=== PATIENT | male | born 1965 | race Caucasian/White ===

== ENCOUNTER 2019-03-01 20:32 | Inpatient (IN) | payer OTHER ==
[2019-03-01] MEDS ORDERED: NACL 0.9% 3 ML SYG IV (21:00)
[2019-03-01] MEDS ORDERED: BISACODYL (EC) 5 MG TAB PO (21:00)
[2019-03-01] MEDS ORDERED: DOCUSATE SODIUM 100 MG CAP PO (21:00)
[2019-03-01] MEDS ORDERED: ONDANSETRON 4 MG INJ IV (21:00)
[2019-03-01] MEDS ORDERED: ACETAMINOPHEN 325 MG TAB PO (21:00)
[2019-03-01 21:37] LABS: ADD MAN DIFF? NO; HAAIG REFLEX REFLEX FILED
[2019-03-01 21:44] LABS: BASOPHILS % 0.3 % (0.0-2.0); EOSINOPHILS # 0.4 10^3/ul (0.0-0.5); EOSINOPHILS % 6.6 % (0.0-7.0); HEMATOCRIT 27.8 % (42.0-52.0); HEMOGLOBIN 8.6 g/dl (14.0-18.0); LYMPHOCYTES # 1.9 10^3/ul (0.8-2.9); LYMPHOCYTES % 32.4 % (15.0-51.0); MEAN CORPUSCULAR HGB CONC 30.9 g/dl (32.0-37.0); MEAN CORPUSCULAR VOLUME 87.1 fl (82.0-101.0); MEAN PLATELET VOLUME 8.6 fl (7.4-10.4); MONOCYTE # 0.6 10^3/ul (0.3-0.9); MONOCYTES % 10.3 % (0.0-11.0); NEUTROPHIL # 2.9 10^3/ul (1.6-7.5); NEUTROPHILS % 50.1 % (39.0-77.0); PLATELET COUNT 221 10^3/UL (140-415); RED BLOOD COUNT 3.19 10^6/ul (4.70-6.10); RED CELL DISTRIBUTION WIDTH 13.9 % (11.5-14.5)
[2019-03-01 21:44] LABS: WHITE BLOOD COUNT 5.7 10^3/ul (4.8-10.8)
[2019-03-01 22:08] LABS: ALANINE AMINOTRANSFERASE 22 IU/L (13-69); ALBUMIN 2.1 g/dl (3.3-4.9); ALBUMIN/GLOBULIN RATIO 0.72; ALKALINE PHOSPHATASE 162 IU/L (42-121); ANION GAP 6 (5-13); ASPARTATE AMINO TRANSFERASE 21 IU/L (15-46); BILIRUBIN,INDIRECT 0.1 mg/dl (0-1.1); BILIRUBIN,TOTAL 0.1 mg/dl (0.2-1.3); BLOOD UREA NITROGEN 30 mg/dl (7-20); CALCIUM 7.6 mg/dl (8.4-10.2); CARBON DIOXIDE 20 mmol/L (21-31); CHLORIDE 114 mmol/L (97-110); CREATININE 3.47 mg/dl (0.61-1.24); Estimated GFR 19 mL/min (>60); GLUCOSE 174 mg/dl (70-220); MAGNESIUM 1.8 mg/dl (1.7-2.5); POTASSIUM 4.1 mmol/L (3.5-5.1); SODIUM 140 mmol/L (135-144)
[2019-03-01 22:39] LABS: HEPATITIS B SURFACE ANTIGEN NEGATIVE (NEGATIVE)
[2019-03-01 22:56] LABS: HEPATITIS B CORE ANTIBODY REACTIVE (NEGATIVE)
[2019-03-01 22:57] LABS: HEPATITIS B SURFACE ANTIBODY POSITIVE (NEGATIVE)
[2019-03-01] MEDS: SOD CHLORIDE 0.9% 1,000 ML IV (23:07)
[2019-03-01 23:10] LABS: HEPATITIS C VIRAL ANTIBODY REACTIVE (NEGATIVE)
[2019-03-01] MEDS: HEPARIN 5,000 UNIT/1 ML VIAL SC (23:35)
[2019-03-02] MEDS ORDERED: EYE RELIEF BOTH EYES
[2019-03-02] MEDS: HYDROCODONE/APAP (5/325) TAB PO ×2 (00:46→20:52)
[2019-03-02] MEDS: AMLODIPINE 10 MG TAB PO ×3 (00:47→20:53)
[2019-03-02] MEDS: LEVETIRACETAM 500 MG TAB PO ×3 (00:48→20:53)
[2019-03-02] MEDS ORDERED: DEXTROSE 50% 50 ML SYRINGE IV ×2 (01:00)
[2019-03-02] MEDS ORDERED: GLUCOSE GEL 15 GRAM TUBE BUCCAL (01:00)
[2019-03-02] MEDS ORDERED: GLUCAGON 1 MG INJ IM (01:00)
[2019-03-02] MEDS ORDERED: GLUCOSE GEL 15 GRAM TUBE PO ×2 (01:00)
[2019-03-02 01:11] LABS: ADD UMIC YES; UR ASCORBIC ACID 20 mg/dL (NEGATIVE); UR BILIRUBIN (Dip) NEGATIVE (NEGATIVE); UR BLOOD (Dip) NEGATIVE (NEGATIVE); UR CLARITY SLIGHTLY CLOUDY (CLEAR); UR COLOR YELLOW (YELLOW); UR GLUCOSE (Dip) 3+ mg/dL (NEGATIVE); UR KETONES (Dip) NEGATIVE (NEGATIVE); UR LEUKOCYTE ESTERASE (Dip) NEGATIVE Leu/ul (NEGATIVE); UR NITRITE (Dip) NEGATIVE (NEGATIVE); UR RBC 9 /HPF (0-5); UR SPECIFIC GRAVITY (Dip) 1.013 (1.003-1.030); UR TOTAL PROTEIN (Dip) 3+ mg/dl (NEGATIVE); UR UROBILINOGEN (Dip) NEGATIVE (NEGATIVE); UR WBC 3 /HPF (0-5)
[2019-03-02] MEDS: ACCU-CHEK XX (01:33)
[2019-03-02] MEDS: EUCERIN 113 GM CR TOP ×3 (02:23→20:58)
[2019-03-02 02:33] LABS: SODIUM,URINE RANDOM 57 mmol/L (30-90)
[2019-03-02 06:59] LABS: ADD MAN DIFF? NO
[2019-03-02 07:04] LABS: BASOPHILS % 0.4 % (0.0-2.0); EOSINOPHILS # 0.4 10^3/ul (0.0-0.5); EOSINOPHILS % 7.8 % (0.0-7.0); HEMATOCRIT 26.5 % (42.0-52.0); HEMOGLOBIN 8.3 g/dl (14.0-18.0); LYMPHOCYTES % 38.1 % (15.0-51.0); MEAN CORPUSCULAR HEMOGLOBIN 27.1 pg (29.0-33.0); MEAN CORPUSCULAR HGB CONC 31.3 g/dl (32.0-37.0); MEAN CORPUSCULAR VOLUME 86.6 fl (82.0-101.0); MEAN PLATELET VOLUME 8.7 fl (7.4-10.4); MONOCYTE # 0.5 10^3/ul (0.3-0.9); MONOCYTES % 9.1 % (0.0-11.0); NEUTROPHIL # 2.4 10^3/ul (1.6-7.5); NEUTROPHILS % 44.2 % (39.0-77.0); PLATELET COUNT 214 10^3/UL (140-415); RED BLOOD COUNT 3.06 10^6/ul (4.70-6.10); RED CELL DISTRIBUTION WIDTH 14.1 % (11.5-14.5)
[2019-03-02 07:04] LABS: WHITE BLOOD COUNT 5.4 10^3/ul (4.8-10.8)
[2019-03-02 07:28] LABS: ALANINE AMINOTRANSFERASE 20 IU/L (13-69); ALBUMIN/GLOBULIN RATIO 0.66; ALKALINE PHOSPHATASE 159 IU/L (42-121); ANION GAP 4 (5-13); ASPARTATE AMINO TRANSFERASE 22 IU/L (15-46); BILIRUBIN,INDIRECT 0.2 mg/dl (0-1.1); BILIRUBIN,TOTAL 0.2 mg/dl (0.2-1.3); BLOOD UREA NITROGEN 30 mg/dl (7-20); CALCIUM 7.8 mg/dl (8.4-10.2); CARBON DIOXIDE 20 mmol/L (21-31); CHLORIDE 117 mmol/L (97-110); CHOL/HDL RATIO 5.4 RATIO; CHOLESTEROL 157 mg/dl (100-200); CREATININE 3.53 mg/dl (0.61-1.24); Estimated GFR 18 mL/min (>60); GLUCOSE 103 mg/dl (70-220); HDL CHOLESTEROL 29 mg/dl (28-71); LDL CHOLESTEROL,CALCULATED 81 mg/dl; MAGNESIUM 1.7 mg/dl (1.7-2.5); POTASSIUM 3.8 mmol/L (3.5-5.1); SODIUM 141 mmol/L (135-144); TRIGLYCERIDES 233 mg/dl (0-149)
[2019-03-02] MEDS: INSULIN ASPART [NOVOLOG] 3 ML PEN SC ×4 (08:00→20:54)
[2019-03-02 08:13] LABS: HEMOGLOBIN A1C 6.4 % (0-5.9)
[2019-03-02] MEDS: ZINC SULFATE 220 MG CAP PO (10:01)
[2019-03-02] MEDS: ASCORBIC ACID 500 MG TAB PO ×2 (10:02→20:53)
[2019-03-02] MEDS: DOCUSATE SODIUM 100 MG CAP PO ×2 (10:02→20:52)
[2019-03-02] MEDS: ONDANSETRON 4 MG INJ IV (11:02)
[2019-03-02] MEDS: SENNA TAB PO (20:53)
[2019-03-02] MEDS: BALSAM PERU/CASTOR OIL 60 GM TUBE TOP (23:05)
[2019-03-03] MEDS: ACCU-CHEK XX (02:00)
[2019-03-03] MEDS: PANTOPRAZOLE (EC) 40 MG TAB PO (06:01)
[2019-03-03 07:22] LABS: ADD MAN DIFF? NO
[2019-03-03 07:24] LABS: BASOPHILS % 0.6 % (0.0-2.0); EOSINOPHILS # 0.3 10^3/ul (0.0-0.5); EOSINOPHILS % 5.4 % (0.0-7.0); HEMOGLOBIN 9.1 g/dl (14.0-18.0); LYMPHOCYTES # 1.6 10^3/ul (0.8-2.9); LYMPHOCYTES % 30.4 % (15.0-51.0); MEAN CORPUSCULAR HEMOGLOBIN 27.2 pg (29.0-33.0); MEAN CORPUSCULAR HGB CONC 31.4 g/dl (32.0-37.0); MEAN CORPUSCULAR VOLUME 86.6 fl (82.0-101.0); MEAN PLATELET VOLUME 8.6 fl (7.4-10.4); MONOCYTE # 0.5 10^3/ul (0.3-0.9); MONOCYTES % 9.9 % (0.0-11.0); NEUTROPHIL # 2.9 10^3/ul (1.6-7.5); NEUTROPHILS % 53.3 % (39.0-77.0); PLATELET COUNT 244 10^3/UL (140-415); RED BLOOD COUNT 3.35 10^6/ul (4.70-6.10); RED CELL DISTRIBUTION WIDTH 13.8 % (11.5-14.5)
[2019-03-03 07:24] LABS: WHITE BLOOD COUNT 5.4 10^3/ul (4.8-10.8)
[2019-03-03 07:51] LABS: ALANINE AMINOTRANSFERASE 22 IU/L (13-69); ALBUMIN 2.3 g/dl (3.3-4.9); ALBUMIN/GLOBULIN RATIO 0.71; ALKALINE PHOSPHATASE 190 IU/L (42-121); ANION GAP 4 (5-13); ASPARTATE AMINO TRANSFERASE 25 IU/L (15-46); BILIRUBIN,INDIRECT 0.2 mg/dl (0-1.1); BILIRUBIN,TOTAL 0.2 mg/dl (0.2-1.3); BLOOD UREA NITROGEN 28 mg/dl (7-20); CARBON DIOXIDE 19 mmol/L (21-31); CHLORIDE 118 mmol/L (97-110); CREATININE 3.49 mg/dl (0.61-1.24); Estimated GFR 18 mL/min (>60); GLUCOSE 108 mg/dl (70-220); SODIUM 141 mmol/L (135-144); TOTAL PROTEIN 5.5 g/dl (6.1-8.1)
[2019-03-03] MEDS: ONDANSETRON 4 MG INJ IV (08:22)
[2019-03-03] MEDS: ACETAMINOPHEN 325 MG TAB PO (08:23)
[2019-03-03] MEDS: AMLODIPINE 10 MG TAB PO (08:27)
[2019-03-03] MEDS: DOCUSATE SODIUM 100 MG CAP PO ×2 (08:27→20:33)
[2019-03-03] MEDS: LEVETIRACETAM 500 MG TAB PO ×2 (08:27→20:33)
[2019-03-03] MEDS: ZINC SULFATE 220 MG CAP PO (08:28)
[2019-03-03] MEDS: ASCORBIC ACID 500 MG TAB PO ×2 (08:28→20:33)
[2019-03-03] MEDS: INSULIN ASPART [NOVOLOG] 3 ML PEN SC ×4 (08:35→20:36)
[2019-03-03] MEDS: EUCERIN 113 GM CR TOP ×2 (08:36→20:35)
[2019-03-03] MEDS: BALSAM PERU/CASTOR OIL 60 GM TUBE TOP ×2 (08:36→20:35)
[2019-03-03] MEDS: NIFEdipine (XL) 90 MG TAB PO (16:30)
[2019-03-03] MEDS: SENNA TAB PO (20:32)
[2019-03-03] MEDS: HYDROCODONE/APAP (5/325) TAB PO (20:32)
[2019-03-03] MEDS: QUETIAPINE 25 MG TAB PO (22:19)
[2019-03-04] MEDS: ACCU-CHEK XX (01:26)
[2019-03-04 02:26] LABS: ADD UMIC YES; UR AMORPHOUS CRYSTAL FEW /HPF (NONE SEEN); UR ASCORBIC ACID 40 mg/dL (NEGATIVE); UR BACTERIA FEW /HPF (NONE SEEN); UR BILIRUBIN (Dip) NEGATIVE (NEGATIVE); UR BLOOD (Dip) NEGATIVE (NEGATIVE); UR CLARITY CLOUDY (CLEAR); UR COLOR YELLOW (YELLOW); UR GLUCOSE (Dip) 2+ mg/dL (NEGATIVE); UR KETONES (Dip) NEGATIVE (NEGATIVE); UR LEUKOCYTE ESTERASE (Dip) NEGATIVE Leu/ul (NEGATIVE); UR NITRITE (Dip) NEGATIVE (NEGATIVE); UR RBC 4 /HPF (0-5); UR SPECIFIC GRAVITY (Dip) 1.019 (1.003-1.030); UR SQUAMOUS EPITHELIAL CELL FEW /HPF (FEW); UR TOTAL PROTEIN (Dip) 3+ mg/dl (NEGATIVE); UR UROBILINOGEN (Dip) NEGATIVE (NEGATIVE); UR WBC 5 /HPF (0-5)
[2019-03-04 02:29] LABS: CREATININE,URINE RANDOM 126.65 mg/dl (20-370)
[2019-03-04 02:29] LABS: SODIUM,URINE RANDOM 25 mmol/L (30-90)
[2019-03-04 04:04] LABS: PROTEIN URINE > 600.0 mg/dl (0.0-11.9)
[2019-03-04] MEDS: PANTOPRAZOLE (EC) 40 MG TAB PO (05:37)
[2019-03-04] MEDS: ONDANSETRON 4 MG INJ IV (08:17)
[2019-03-04] MEDS: ASCORBIC ACID 500 MG TAB PO (08:21)
[2019-03-04] MEDS: LEVETIRACETAM 500 MG TAB PO (08:21)
[2019-03-04] MEDS: ZINC SULFATE 220 MG CAP PO (08:21)
[2019-03-04] MEDS: DOCUSATE SODIUM 100 MG CAP PO (08:21)
[2019-03-04] MEDS: INSULIN ASPART [NOVOLOG] 3 ML PEN SC ×2 (08:22→12:09)
[2019-03-04] MEDS: NIFEdipine (XL) 90 MG TAB PO (08:24)
[2019-03-04] MEDS: EUCERIN 113 GM CR TOP (08:25)
[2019-03-04] MEDS: BALSAM PERU/CASTOR OIL 60 GM TUBE TOP (08:25)
[2019-03-04] MEDS: hydrALAzine 20 MG INJ IV (10:26)
[2019-03-04] MEDS: HYDROCODONE/APAP (10/325) TAB PO (10:29)
[2019-03-07 16:12] LABS: CREATININE, RANDOM URINE 124 mg/dL (20-320); MICROALBUMIN >600.0 mg/dL
== END 2019-03-04 15:09 | disposition left against medical advice (07) | DRG 683 ==
LOC: PP2 22:22 → E/R 20:32 → PP2 20:35
DX: N17.9 Acute kidney failure, unspecified (principal); E87.2 Acidosis; K52.9 Noninfective gastroenteritis and colitis, unspecified; N18.4 Chronic kidney disease, stage 4 (severe); K29.70 Gastritis, unspecified, without bleeding; E11.22 Type 2 diabetes mellitus with diabetic chronic kidney disease; I12.9 Hypertensive chronic kidney disease with stage 1 through stage 4 chronic kidney disease, or unspecified chronic kidney disease; Z89.519 Acquired absence of unspecified leg below knee; E86.0 Dehydration; R10.11 Right upper quadrant pain; E11.319 Type 2 diabetes mellitus with unspecified diabetic retinopathy without macular edema; Z86.718 Personal history of other venous thrombosis and embolism; R53.81 Other malaise; D64.9 Anemia, unspecified; B19.20 Unspecified viral hepatitis C without hepatic coma
CPT/HCPCS: 73630-LT; 73660; 76705; 76775; 80053; 80061; 81001; 81003; 82043; 82962; 83036; 83735; 84155; 84300; 84443; 85025; 86704; 86706; 86708; 86709; 86803; 87081; 87340; 87522; 93970; 99285-25

== ENCOUNTER 2019-04-19 05:55 | Inpatient (IN) | payer OTHER ==
[2019-04-19] MEDS: hydrALAzine 20 MG INJ IV (07:54)
[2019-04-19] MEDS: morphine 4 MG/ML VIAL IV (08:21)
[2019-04-19] MEDS ORDERED: NACL 0.9% 3 ML SYG IV (10:00)
[2019-04-19] MEDS ORDERED: morphine 2 MG INJ IV (10:00)
[2019-04-19] MEDS ORDERED: PENDING SANTYL ORDER FOR WOUND CARE XX (10:30)
[2019-04-19] MEDS: HYDROmorphONE 1 MG/ML SYG IV ×3 (11:36→19:59)
[2019-04-19] MEDS: DOCUSATE SODIUM 100 MG CAP PO ×2 (11:39→20:13)
[2019-04-19] MEDS: LEVETIRACETAM 500 MG TAB PO ×2 (11:39→20:14)
[2019-04-19] MEDS: MULTIVITAMINS THERAPEUTIC TAB PO (11:39)
[2019-04-19] MEDS: ASCORBIC ACID 500 MG TAB PO ×2 (11:40→20:14)
[2019-04-19] MEDS: ZINC SULFATE 220 MG CAP PO (11:41)
[2019-04-19 12:22] LABS: ADD MAN DIFF? NO
[2019-04-19 12:27] LABS: WHITE BLOOD COUNT 10.4 10^3/ul (4.8-10.8)
[2019-04-19 12:27] LABS: BASOPHILS % 0.4 % (0.0-2.0); EOSINOPHILS # 0.7 10^3/ul (0.0-0.5); EOSINOPHILS % 6.2 % (0.0-7.0); HEMATOCRIT 34.2 % (42.0-52.0); HEMOGLOBIN 11.1 g/dl (14.0-18.0); LYMPHOCYTES # 2.3 10^3/ul (0.8-2.9); LYMPHOCYTES % 21.6 % (15.0-51.0); MEAN CORPUSCULAR HEMOGLOBIN 26.6 pg (29.0-33.0); MEAN CORPUSCULAR HGB CONC 32.5 g/dl (32.0-37.0); MEAN CORPUSCULAR VOLUME 81.8 fl (82.0-101.0); MEAN PLATELET VOLUME 9.5 fl (7.4-10.4); MONOCYTE # 0.7 10^3/ul (0.3-0.9); MONOCYTES % 6.9 % (0.0-11.0); NEUTROPHIL # 6.7 10^3/ul (1.6-7.5); NEUTROPHILS % 63.9 % (39.0-77.0); PLATELET COUNT 292 10^3/UL (140-415); RED BLOOD COUNT 4.18 10^6/ul (4.70-6.10); RED CELL DISTRIBUTION WIDTH 14.2 % (11.5-14.5)
[2019-04-19] MEDS: FUROSEMIDE 40 MG INJ IV (12:38)
[2019-04-19] MEDS: INSULIN GLARGINE [LANTus] (100 UNITS/ML) SYG SC (13:39)
[2019-04-19 13:48] LABS: ADD UMIC YES; UR ASCORBIC ACID 40 mg/dL (NEGATIVE); UR BACTERIA MODERATE /HPF (NONE SEEN); UR BILIRUBIN (Dip) NEGATIVE (NEGATIVE); UR BLOOD (Dip) NEGATIVE (NEGATIVE); UR CLARITY SLIGHTLY CLOUDY (CLEAR); UR COLOR YELLOW (YELLOW); UR GLUCOSE (Dip) 3+ mg/dL (NEGATIVE); UR KETONES (Dip) NEGATIVE (NEGATIVE); UR LEUKOCYTE ESTERASE (Dip) NEGATIVE Leu/ul (NEGATIVE); UR NITRITE (Dip) NEGATIVE (NEGATIVE); UR RBC 10 /HPF (0-5); UR SPECIFIC GRAVITY (Dip) 1.014 (1.003-1.030); UR TOTAL PROTEIN (Dip) 3+ mg/dl (NEGATIVE); UR UROBILINOGEN (Dip) NEGATIVE (NEGATIVE); UR WBC 2 /HPF (0-5)
[2019-04-19 14:29] LABS: SODIUM,URINE RANDOM 59 mmol/L (30-90)
[2019-04-19 14:49] LABS: ANION GAP 6 (5-13); BLOOD UREA NITROGEN 34 mg/dl (7-20); CARBON DIOXIDE 15 mmol/L (21-31); CHLORIDE 118 mmol/L (97-110); CREATININE 4.26 mg/dl (0.61-1.24); Estimated GFR 15 mL/min (>60); GLUCOSE 170 mg/dl (70-220); POTASSIUM 4.1 mmol/L (3.5-5.1); SODIUM 139 mmol/L (135-144)
[2019-04-19 14:58] LABS: B-TYPE NATRIURETIC PEPTIDE 11400 PG/ML (0-125)
[2019-04-19 15:42] LABS: PROTEIN URINE > 600.0 mg/dl (0.0-11.9)
[2019-04-19] MEDS: INSULIN ASPART [NOVOLOG] 3 ML PEN SC ×3 (17:30→20:13)
[2019-04-19] MEDS: SENNA TAB PO (20:23)
[2019-04-19] MEDS ORDERED: AMLODIPINE 10 MG TAB PO (21:00)
[2019-04-20] MEDS: QUETIAPINE 25 MG TAB PO ×2 (01:18→22:35)
[2019-04-20] MEDS: ACCU-CHEK XX (02:00)
[2019-04-20] MEDS: HYDROmorphONE 1 MG/ML SYG IV ×7 (04:03→23:34)
[2019-04-20 06:39] LABS: ADD MAN DIFF? NO
[2019-04-20 06:43] LABS: BASOPHILS % 0.5 % (0.0-2.0); EOSINOPHILS # 0.6 10^3/ul (0.0-0.5); EOSINOPHILS % 7.7 % (0.0-7.0); HEMATOCRIT 25.1 % (42.0-52.0); HEMOGLOBIN 8.3 g/dl (14.0-18.0); LYMPHOCYTES # 2.1 10^3/ul (0.8-2.9); LYMPHOCYTES % 28.1 % (15.0-51.0); MEAN CORPUSCULAR HEMOGLOBIN 27.1 pg (29.0-33.0); MEAN CORPUSCULAR HGB CONC 33.1 g/dl (32.0-37.0); MEAN PLATELET VOLUME 9.3 fl (7.4-10.4); MONOCYTE # 0.6 10^3/ul (0.3-0.9); MONOCYTES % 8.7 % (0.0-11.0); NEUTROPHILS % 54.6 % (39.0-77.0); PLATELET COUNT 233 10^3/UL (140-415); RED BLOOD COUNT 3.06 10^6/ul (4.70-6.10); RED CELL DISTRIBUTION WIDTH 14.3 % (11.5-14.5)
[2019-04-20 06:43] LABS: WHITE BLOOD COUNT 7.4 10^3/ul (4.8-10.8)
[2019-04-20 06:55] LABS: HEMOGLOBIN A1C 6.3 % (0-5.9)
[2019-04-20 07:04] LABS: ALANINE AMINOTRANSFERASE 24 IU/L (13-69); ALBUMIN 1.8 g/dl (3.3-4.9); ALKALINE PHOSPHATASE 149 IU/L (42-121); ANION GAP 4 (5-13); ASPARTATE AMINO TRANSFERASE 27 IU/L (15-46); BILIRUBIN,INDIRECT 0.1 mg/dl (0-1.1); BILIRUBIN,TOTAL 0.1 mg/dl (0.2-1.3); BLOOD UREA NITROGEN 35 mg/dl (7-20); CALCIUM 7.4 mg/dl (8.4-10.2); CARBON DIOXIDE 17 mmol/L (21-31); CHLORIDE 121 mmol/L (97-110); CHOL/HDL RATIO 4.3 RATIO; CHOLESTEROL 135 mg/dl (100-200); CREATININE 4.35 mg/dl (0.61-1.24); Estimated GFR 14 mL/min (>60); GLUCOSE 71 mg/dl (70-220); HDL CHOLESTEROL 31 mg/dl (28-71); LDL CHOLESTEROL,CALCULATED 83 mg/dl; MAGNESIUM 1.8 mg/dl (1.7-2.5); PHOSPHORUS 5.9 mg/dl (2.5-4.9); POTASSIUM 3.8 mmol/L (3.5-5.1); SODIUM 142 mmol/L (135-144); TOTAL PROTEIN 4.8 g/dl (6.1-8.1); TRIGLYCERIDES 106 mg/dl (0-149)
[2019-04-20] MEDS: INSULIN ASPART [NOVOLOG] 3 ML PEN SC ×5 (07:55→21:00)
[2019-04-20] MEDS ORDERED: METOLAZONE 5 MG TAB PO (08:30)
[2019-04-20] MEDS: LEVETIRACETAM 500 MG TAB PO ×2 (09:29→21:20)
[2019-04-20] MEDS: ZINC SULFATE 220 MG CAP PO (09:29)
[2019-04-20] MEDS: MULTIVITAMINS THERAPEUTIC TAB PO (09:31)
[2019-04-20] MEDS: ASCORBIC ACID 500 MG TAB PO ×2 (09:31→21:22)
[2019-04-20] MEDS: PSYLLIUM 28% PACKET PO ×2 (09:38→21:22)
[2019-04-20] MEDS: FUROSEMIDE 40 MG INJ IV ×2 (09:38→17:39)
[2019-04-20] MEDS ORDERED: DEXTROSE 50% 50 ML SYRINGE IV ×2 (10:00)
[2019-04-20] MEDS ORDERED: GLUCAGON 1 MG INJ IM (10:00)
[2019-04-20] MEDS ORDERED: GLUCOSE GEL 15 GRAM TUBE BUCCAL (10:00)
[2019-04-20] MEDS ORDERED: GLUCOSE GEL 15 GRAM TUBE PO ×2 (10:00)
[2019-04-20] MEDS: METOLAZONE 2.5 MG TAB PO (10:19)
[2019-04-20] MEDS: SEVELAMER CARBONATE 800 MG TABLET PO ×2 (12:04→17:27)
[2019-04-20 12:39] LABS: FLUID LD 139 U/L; FLUID TYPE PARACENTESIS FLUID
[2019-04-20 12:40] LABS: FLUID TOTAL PROTEIN < 2.0 g/dl
[2019-04-20 12:52] LABS: FLD WBC 114 /cmm
[2019-04-20 13:00] LABS: FLD CLARITY CLEAR; FLD COLOR COLORLESS
[2019-04-20 13:00] LABS: FLD TYPE PARACENTHESIS
[2019-04-20 13:01] LABS: FLD RBC < 2000 /uL
[2019-04-20] MEDS: LIDOCAINE 1% (MPF) 5 ML VIAL (13:08)
[2019-04-20 13:16] LABS: FLD MN% 85.1 %; FLD PMN% 14.9 %
[2019-04-20] MEDS: DOXAZOSIN 2 MG TAB PO (14:10)
[2019-04-20] MEDS: NIFEdipine (XL) 30 MG TAB PO ×2 (15:54→21:20)
[2019-04-20 16:32] LABS: CREATININE, RANDOM URINE 69 mg/dL (20-320); MICROALBUMIN 410.4 mg/dL; MICROALBUMIN/CREATININE RATIO 5948 (<30)
[2019-04-20] MEDS: hydrALAzine 20 MG INJ IV (17:44)
[2019-04-20] MEDS: DOCUSATE SODIUM 100 MG CAP PO (21:21)
[2019-04-20] MEDS: SENNA TAB PO (21:22)
[2019-04-20] MEDS: INSULIN GLARGINE [LANTus] (100 UNITS/ML) SYG SC (21:29)
[2019-04-21] MEDS: hydrALAzine 20 MG INJ IV ×2 (01:07→15:26)
[2019-04-21] MEDS: ACCU-CHEK XX (02:15)
[2019-04-21] MEDS: HYDROmorphONE 1 MG/ML SYG IV ×6 (03:26→23:31)
[2019-04-21] MEDS: SPIRONOLACTONE 25 MG TAB PO (06:08)
[2019-04-21] MEDS: FUROSEMIDE 40 MG INJ IV ×2 (06:09→17:20)
[2019-04-21] MEDS: INSULIN ASPART [NOVOLOG] 3 ML PEN SC ×4 (07:41→21:00)
[2019-04-21] MEDS: LEVETIRACETAM 500 MG TAB PO ×2 (08:20→21:51)
[2019-04-21] MEDS: ZINC SULFATE 220 MG CAP PO (08:20)
[2019-04-21] MEDS: ASCORBIC ACID 500 MG TAB PO ×2 (08:20→21:51)
[2019-04-21 08:21] LABS: ADD MAN DIFF? NO
[2019-04-21] MEDS: SEVELAMER CARBONATE 800 MG TABLET PO ×3 (08:21→17:20)
[2019-04-21] MEDS: SENNA TAB PO ×2 (08:21→21:49)
[2019-04-21] MEDS: MULTIVITAMINS THERAPEUTIC TAB PO (08:21)
[2019-04-21] MEDS: DOCUSATE SODIUM 100 MG CAP PO ×2 (08:21→21:51)
[2019-04-21] MEDS: NIFEdipine (XL) 30 MG TAB PO ×2 (08:22→21:49)
[2019-04-21 08:29] LABS: BASOPHILS % 0.2 % (0.0-2.0); EOSINOPHILS # 0.6 10^3/ul (0.0-0.5); EOSINOPHILS % 6.7 % (0.0-7.0); HEMATOCRIT 27.4 % (42.0-52.0); HEMOGLOBIN 8.9 g/dl (14.0-18.0); LYMPHOCYTES # 1.8 10^3/ul (0.8-2.9); LYMPHOCYTES % 22.2 % (15.0-51.0); MEAN CORPUSCULAR HEMOGLOBIN 26.8 pg (29.0-33.0); MEAN CORPUSCULAR HGB CONC 32.5 g/dl (32.0-37.0); MEAN CORPUSCULAR VOLUME 82.5 fl (82.0-101.0); MEAN PLATELET VOLUME 9.5 fl (7.4-10.4); MONOCYTE # 0.6 10^3/ul (0.3-0.9); MONOCYTES % 7.2 % (0.0-11.0); NEUTROPHIL # 5.2 10^3/ul (1.6-7.5); NEUTROPHILS % 63.3 % (39.0-77.0); PLATELET COUNT 283 10^3/UL (140-415); RED BLOOD COUNT 3.32 10^6/ul (4.70-6.10); RED CELL DISTRIBUTION WIDTH 13.8 % (11.5-14.5)
[2019-04-21 08:29] LABS: WHITE BLOOD COUNT 8.2 10^3/ul (4.8-10.8)
[2019-04-21 08:52] LABS: ANION GAP 7 (5-13); BLOOD UREA NITROGEN 40 mg/dl (7-20); CALCIUM 7.9 mg/dl (8.4-10.2); CARBON DIOXIDE 18 mmol/L (21-31); CHLORIDE 117 mmol/L (97-110); CREATININE 4.28 mg/dl (0.61-1.24); Estimated GFR 15 mL/min (>60); GLUCOSE 73 mg/dl (70-220); MAGNESIUM 1.8 mg/dl (1.7-2.5); PHOSPHORUS 5.9 mg/dl (2.5-4.9); POTASSIUM 3.9 mmol/L (3.5-5.1); SODIUM 142 mmol/L (135-144)
[2019-04-21] MEDS: PSYLLIUM 28% PACKET PO ×2 (11:32→21:52)
[2019-04-21 13:49] LABS: HEPATITIS B SURFACE ANTIGEN NEGATIVE (NEGATIVE)
[2019-04-21 14:06] LABS: HEPATITIS B SURFACE ANTIBODY POSITIVE (NEGATIVE)
[2019-04-21 14:07] LABS: HEPATITIS B CORE ANTIBODY REACTIVE (NEGATIVE)
[2019-04-21 14:08] LABS: HEPATITIS C VIRAL ANTIBODY REACTIVE (NEGATIVE)
[2019-04-21 15:13] LABS: CREATINE KINASE 375 IU/L (23-200)
[2019-04-21 15:24] LABS: CK INDEX 1.9; TROPONIN-I 0.042 ng/ml (0.000-0.120)
[2019-04-21 15:33] LABS: CK-MB 7.14 ng/ml (0.0-2.4)
[2019-04-21] MEDS: DOXAZOSIN 2 MG TAB PO (21:49)
[2019-04-21] MEDS: RIFAXIMIN 550 MG TAB PO (21:49)
[2019-04-21] MEDS: INSULIN GLARGINE [LANTus] (100 UNITS/ML) SYG SC (22:01)
[2019-04-21] MEDS: QUETIAPINE 25 MG TAB PO (23:30)
[2019-04-21] MEDS: AL HYDROX/MG HYDROX/SIMETH 30 ML CUP PO (23:30)
[2019-04-22] MEDS: ONDANSETRON 4 MG INJ IV ×4 (00:46→21:19)
[2019-04-22] MEDS: hydrALAzine 20 MG INJ IV (00:46)
[2019-04-22] MEDS: QUETIAPINE 25 MG TAB PO (02:07)
[2019-04-22] MEDS: ACCU-CHEK XX (02:14)
[2019-04-22] MEDS: HYDROmorphONE 1 MG/ML SYG IV ×3 (03:28→12:34)
[2019-04-22] MEDS: SPIRONOLACTONE 25 MG TAB PO (06:05)
[2019-04-22] MEDS: FUROSEMIDE 40 MG INJ IV ×2 (06:06→17:37)
[2019-04-22 06:46] LABS: ADD MAN DIFF? NO
[2019-04-22 06:48] LABS: BASOPHILS % 0.4 % (0.0-2.0); EOSINOPHILS # 0.4 10^3/ul (0.0-0.5); EOSINOPHILS % 4.8 % (0.0-7.0); HEMATOCRIT 25.5 % (42.0-52.0); HEMOGLOBIN 8.2 g/dl (14.0-18.0); LYMPHOCYTES % 26.8 % (15.0-51.0); MEAN CORPUSCULAR HEMOGLOBIN 26.5 pg (29.0-33.0); MEAN CORPUSCULAR HGB CONC 32.2 g/dl (32.0-37.0); MEAN CORPUSCULAR VOLUME 82.3 fl (82.0-101.0); MEAN PLATELET VOLUME 8.6 fl (7.4-10.4); MONOCYTE # 0.7 10^3/ul (0.3-0.9); MONOCYTES % 9.7 % (0.0-11.0); NEUTROPHIL # 4.3 10^3/ul (1.6-7.5); NEUTROPHILS % 57.9 % (39.0-77.0); PLATELET COUNT 235 10^3/UL (140-415)
[2019-04-22 06:48] LABS: WHITE BLOOD COUNT 7.3 10^3/ul (4.8-10.8)
[2019-04-22 07:07] LABS: INR 1.03; PROTIME 13.6 Sec (11.9-14.9); PT RATIO 1.1
[2019-04-22 07:12] LABS: ANION GAP 6 (5-13); BLOOD UREA NITROGEN 44 mg/dl (7-20); CALCIUM 7.6 mg/dl (8.4-10.2); CARBON DIOXIDE 19 mmol/L (21-31); CHLORIDE 117 mmol/L (97-110); Estimated GFR 14 mL/min (>60); GLUCOSE 102 mg/dl (70-220); MAGNESIUM 1.7 mg/dl (1.7-2.5); PHOSPHORUS 6.3 mg/dl (2.5-4.9); POTASSIUM 3.9 mmol/L (3.5-5.1); SODIUM 142 mmol/L (135-144)
[2019-04-22] MEDS: INSULIN ASPART [NOVOLOG] 3 ML PEN SC ×4 (07:55→21:00)
[2019-04-22] MEDS: PSYLLIUM 28% PACKET PO ×2 (09:00→21:19)
[2019-04-22] MEDS: ZINC SULFATE 220 MG CAP PO (09:37)
[2019-04-22] MEDS: RIFAXIMIN 550 MG TAB PO ×2 (09:37→21:20)
[2019-04-22] MEDS: MULTIVITAMINS THERAPEUTIC TAB PO (09:38)
[2019-04-22] MEDS: ASCORBIC ACID 500 MG TAB PO ×2 (09:38→21:20)
[2019-04-22] MEDS: NIFEdipine (XL) 30 MG TAB PO ×2 (09:39→21:21)
[2019-04-22] MEDS: SENNA TAB PO ×2 (09:39→21:21)
[2019-04-22] MEDS: LEVETIRACETAM 500 MG TAB PO ×2 (09:39→21:20)
[2019-04-22] MEDS: DOCUSATE SODIUM 100 MG CAP PO ×2 (09:39→21:21)
[2019-04-22] MEDS: SEVELAMER CARBONATE 800 MG TABLET PO ×2 (11:42→17:38)
[2019-04-22] MEDS: OXYCODONE/ACETAMINOPHEN (5/325) TAB PO ×3 (15:44→23:53)
[2019-04-22] MEDS: DOXAZOSIN 2 MG TAB PO (21:21)
[2019-04-22] MEDS: INSULIN GLARGINE [LANTus] (100 UNITS/ML) SYG SC (21:33)
[2019-04-23] MEDS: ACCU-CHEK XX (02:22)
[2019-04-23] MEDS: ONDANSETRON 4 MG INJ IV ×4 (03:39→21:59)
[2019-04-23] MEDS: OXYCODONE/ACETAMINOPHEN (5/325) TAB PO ×5 (03:40→20:16)
[2019-04-23] MEDS: SPIRONOLACTONE 25 MG TAB PO (05:43)
[2019-04-23] MEDS: FUROSEMIDE 40 MG INJ IV ×2 (05:44→17:03)
[2019-04-23 07:28] LABS: ANION GAP 5 (5-13); BLOOD UREA NITROGEN 45 mg/dl (7-20); CALCIUM 7.7 mg/dl (8.4-10.2); CARBON DIOXIDE 21 mmol/L (21-31); CHLORIDE 116 mmol/L (97-110); CREATININE 4.29 mg/dl (0.61-1.24); Estimated GFR 15 mL/min (>60); POTASSIUM 3.8 mmol/L (3.5-5.1); SODIUM 142 mmol/L (135-144)
[2019-04-23 07:44] LABS: GLUCOSE 41 mg/dl (70-220)
[2019-04-23] MEDS: INSULIN ASPART [NOVOLOG] 3 ML PEN SC ×4 (07:51→21:00)
[2019-04-23] MEDS: POLYETHYLENE GLYCOL 17 GM PACKET PO (08:13)
[2019-04-23] MEDS: SEVELAMER CARBONATE 800 MG TABLET PO ×3 (08:16→17:02)
[2019-04-23] MEDS: LEVETIRACETAM 500 MG TAB PO ×2 (08:17→22:02)
[2019-04-23] MEDS: ASCORBIC ACID 500 MG TAB PO ×2 (08:17→22:03)
[2019-04-23] MEDS: DOCUSATE SODIUM 100 MG CAP PO (08:17)
[2019-04-23] MEDS: RIFAXIMIN 550 MG TAB PO ×2 (08:17→22:02)
[2019-04-23] MEDS: ZINC SULFATE 220 MG CAP PO (08:17)
[2019-04-23] MEDS: SENNA TAB PO ×2 (08:17→22:02)
[2019-04-23] MEDS: MULTIVITAMINS THERAPEUTIC TAB PO (08:17)
[2019-04-23] MEDS: PSYLLIUM 28% PACKET PO ×2 (08:18→22:02)
[2019-04-23] MEDS: NIFEdipine (XL) 30 MG TAB PO ×2 (08:18→22:01)
[2019-04-23] MEDS: hydrALAzine 20 MG INJ IV (15:54)
[2019-04-23] MEDS: INSULIN GLARGINE [LANTus] (100 UNITS/ML) SYG SC ×2 (20:55→21:00)
[2019-04-23] MEDS: QUETIAPINE 25 MG TAB PO (22:03)
[2019-04-23] MEDS: DOXAZOSIN 2 MG TAB PO (22:04)
[2019-04-24] MEDS: OXYCODONE/ACETAMINOPHEN (5/325) TAB PO ×5 (01:57→20:53)
[2019-04-24] MEDS: ACCU-CHEK XX (02:35)
[2019-04-24] MEDS: ONDANSETRON 4 MG INJ IV ×4 (03:30→21:25)
[2019-04-24] MEDS: SPIRONOLACTONE 25 MG TAB PO (06:14)
[2019-04-24] MEDS: FUROSEMIDE 40 MG INJ IV ×2 (06:14→16:51)
[2019-04-24] MEDS: INSULIN ASPART [NOVOLOG] 3 ML PEN SC ×4 (07:55→21:00)
[2019-04-24 08:55] LABS: ANION GAP 6 (5-13); BLOOD UREA NITROGEN 54 mg/dl (7-20); CALCIUM 7.4 mg/dl (8.4-10.2); CARBON DIOXIDE 20 mmol/L (21-31); CHLORIDE 115 mmol/L (97-110); CREATININE 4.63 mg/dl (0.61-1.24); Estimated GFR 13 mL/min (>60); GLUCOSE 79 mg/dl (70-220); POTASSIUM 4.3 mmol/L (3.5-5.1); SODIUM 141 mmol/L (135-144)
[2019-04-24] MEDS: LEVETIRACETAM 500 MG TAB PO ×2 (08:55→21:23)
[2019-04-24] MEDS: ASCORBIC ACID 500 MG TAB PO ×2 (08:55→22:49)
[2019-04-24] MEDS: SENNA TAB PO ×2 (08:55→21:23)
[2019-04-24 08:58] LABS: MAGNESIUM 1.8 mg/dl (1.7-2.5)
[2019-04-24] MEDS: RIFAXIMIN 550 MG TAB PO ×2 (08:58→21:24)
[2019-04-24] MEDS: FAMOTIDINE 20 MG TAB PO (08:58)
[2019-04-24] MEDS: ZINC SULFATE 220 MG CAP PO (08:59)
[2019-04-24] MEDS: SEVELAMER CARBONATE 800 MG TABLET PO ×3 (08:59→16:37)
[2019-04-24] MEDS: MULTIVITAMINS THERAPEUTIC TAB PO (08:59)
[2019-04-24] MEDS: PSYLLIUM 28% PACKET PO ×2 (08:59→21:00)
[2019-04-24] MEDS: NIFEdipine (XL) 30 MG TAB PO ×2 (09:00→21:22)
[2019-04-24] MEDS: POLYETHYLENE GLYCOL 17 GM PACKET PO (09:01)
[2019-04-24] MEDS: ENOXAPARIN 30 MG/0.3 ML SYG SC (09:08)
[2019-04-24] MEDS: DOXAZOSIN 2 MG TAB PO (21:26)
[2019-04-24] MEDS: QUETIAPINE 25 MG TAB PO (21:42)
[2019-04-24] MEDS: INSULIN GLARGINE [LANTus] (100 UNITS/ML) SYG SC (22:23)
[2019-04-25] MEDS: ACCU-CHEK XX (02:00)
[2019-04-25] MEDS: ONDANSETRON 4 MG INJ IV ×3 (03:30→15:25)
[2019-04-25] MEDS: OXYCODONE/ACETAMINOPHEN (5/325) TAB PO ×4 (04:04→12:13)
[2019-04-25] MEDS: SPIRONOLACTONE 25 MG TAB PO (06:00)
[2019-04-25] MEDS: FUROSEMIDE 40 MG INJ IV (06:00)
[2019-04-25 07:17] LABS: ANION GAP 5 (5-13); BLOOD UREA NITROGEN 56 mg/dl (7-20); CALCIUM 7.5 mg/dl (8.4-10.2); CARBON DIOXIDE 21 mmol/L (21-31); CHLORIDE 115 mmol/L (97-110); CREATININE 4.84 mg/dl (0.61-1.24); Estimated GFR 13 mL/min (>60); GLUCOSE 61 mg/dl (70-220); POTASSIUM 4.6 mmol/L (3.5-5.1); SODIUM 141 mmol/L (135-144)
[2019-04-25 07:28] LABS: FREE T4 (FREE THYROXINE) 1.34 ng/dl (0.64-1.79)
[2019-04-25 07:41] LABS: TRIIODOTHYRONINE 0.81 ng/ml (0.97-1.69)
[2019-04-25] MEDS: INSULIN ASPART [NOVOLOG] 3 ML PEN SC ×3 (07:55→17:08)
[2019-04-25] MEDS: SEVELAMER CARBONATE 800 MG TABLET PO ×3 (07:55→17:08)
[2019-04-25] MEDS: ASCORBIC ACID 500 MG TAB PO (08:14)
[2019-04-25] MEDS: ZINC SULFATE 220 MG CAP PO (08:14)
[2019-04-25] MEDS: SENNA TAB PO (08:14)
[2019-04-25] MEDS: RIFAXIMIN 550 MG TAB PO (08:14)
[2019-04-25] MEDS: FAMOTIDINE 20 MG TAB PO (08:14)
[2019-04-25] MEDS: LEVETIRACETAM 500 MG TAB PO (08:14)
[2019-04-25] MEDS: MULTIVITAMINS THERAPEUTIC TAB PO (08:14)
[2019-04-25] MEDS: ENOXAPARIN 30 MG/0.3 ML SYG SC (08:15)
[2019-04-25] MEDS: NIFEdipine (XL) 30 MG TAB PO (08:15)
[2019-04-25] MEDS: PSYLLIUM 28% PACKET PO (08:15)
[2019-04-25] MEDS: POLYETHYLENE GLYCOL 17 GM PACKET PO (08:15)
[2019-04-25] MEDS: BUMETANIDE 1 MG TAB PO (17:08)
== END 2019-04-25 17:30 | disposition home health service (06) | DRG 291 ==
LOC: TEL 04-22 23:45
PROC: 0W9G3ZZ Drainage of Peritoneal Cavity, Percutaneous Approach (ICD-10-PCS; principal; 2019-04-20)
DX: I13.0 Hypertensive heart and chronic kidney disease with heart failure and stage 1 through stage 4 chronic kidney disease, or unspecified chronic kidney disease (principal); I50.33 Acute on chronic diastolic (congestive) heart failure; N18.4 Chronic kidney disease, stage 4 (severe); N17.9 Acute kidney failure, unspecified; R18.8 Other ascites; N39.0 Urinary tract infection, site not specified; E11.22 Type 2 diabetes mellitus with diabetic chronic kidney disease; Z89.511 Acquired absence of right leg below knee; N50.89 Other specified disorders of the male genital organs; K74.60 Unspecified cirrhosis of liver; Z72.0 Tobacco use; J44.9 Chronic obstructive pulmonary disease, unspecified; G40.909 Epilepsy, unspecified, not intractable, without status epilepticus; N43.3 Hydrocele, unspecified; Z89.422 Acquired absence of other left toe(s)
CPT/HCPCS: 71045; 74176; 76870; 80048; 80053; 80061; 81001; 81003; 82043; 82550; 82553; 82962; 83036; 83615; 83735; 83880; 84100; 84155; 84157; 84300; 84439; 84443; 84480; 84484; 85025; 85610; 86704; 86706; 86803; 87070; 87081; 87102; 87116; 87340; 88104; 88305; 89051; 93005; 93306